=== PATIENT | male | born 1990 | race Caucasian/White ===

== ENCOUNTER 2017-01-06 16:35 | Emergency (ER) | payer OTHER ==
[~2017-01-06] VITALS: Wt 108.9 kg
[2017-01-06] MEDS ORDERED: HYDROCHLOROTHIA25 M1 PO (16:56)
[2017-01-06] MEDS ORDERED: NAPROSYN500 MG PO (19:06)
[2017-01-06] MEDS ORDERED: CYCLOBENZAPRINE5 M3 PO (19:06)
== END 2017-01-06 19:11 | disposition home or self-care (01) ==
LOC: ED 16:35
DX: M54.16 Radiculopathy, lumbar region (principal); Z88.0 Allergy status to penicillin; Z79.899 Other long term (current) drug therapy